=== PATIENT | male | born 1950 | race Caucasian/White ===

== ENCOUNTER 2020-03-27 11:45 | Emergency (ER) | payer MEDICARE, OTHER, SELFPAY ==
--- NOTE | 2020-03-27 11:54 | ED_ITS ---
HPI - Skin/Abscess/Foreign Bdy General: Chief complaint: Wound/Laceration Stated complaint: spider bite Time Seen by Provider: 03/27/20 11:54 Source: patient Mode of arrival: ambulatory Limitations: no limitations History of Present Illness: HPI narrative: Patient is a 69-year-old male who presents to ED today with complaints of a skin lesion to the back of his right thigh that he noticed yesterday after sleeping in a hotel room. Patient believes he may have been bitten by a spider. He states he did not feel initial bite but began feeling a burning sensation while in the shower. Associated symptoms: Deny chills, fever(s), nausea or vomiting Review of Systems Const: Denies: fever(s), chills, body aches, change in appetite, change in weight, fatigue, malaise or night sweats Card: Denies: chest pain Resp: Denies: dyspnea GI: Denies: abdominal pain, nausea or vomiting Musc: Denies: neck pain, back pain, extremity pain, extremity swelling, joint pain, joint swelling, joint stiffness or muscle weakness Skin/Breast: Reports: new lesions Neuro: Denies: headache(s), numbness in extremities, weakness in extremities or sensory changes PFSH ED PFSH: Social History Smoking and tobacco status: never smoked Physical Exam Const: COMMON NORMALS: no acute distress, patient oriented x3, no limitations and alert Extremity: OTHER: Patient has an erythematous area of approximately 1 inch to the posterior mid right thigh; there is a small hemorrhagic center that measures just a few mm and surrounding vesiculation; no fluctuance or drainage noted Neuro: COMMON NORMALS: patient oriented x3 SENSORIUM/ORIENTATION: Yes alert Skin: OTHER: see extremity assessment Course Vital Signs: Vital signs: Vital Signs Pulse Rate 97 03/27/20 12:44 Respiratory Rate 18 03/27/20 12:44 Blood Pressure 141/82 03/27/20 12:44 Pulse Oximetry 95 03/27/20 12:44 Discharge Plan Discharge Patient Disposition: Home, Self-Care Clinical Impression: Brown recluse spider bite Qualifiers: Encounter type: initial encounter Injury intent: accidental or unintentional Qualified Code(s): T63.331A - Toxic effect of venom of brown recluse spider, accidental (unintentional), initial encounter Condition: Stable Prescriptions: New Bactrim DS 800-160 mg tablet 1 tab PO BID 7 Days Qty: 14 RF: 0 Discharge Orders: Discharge Order (Routine); Ordered 03/27/20 Ordered By: Irais Severino Discharge Diet: Usual diet Discharge Activity: Increase activity as tolerated Patient Instructions: Brown Recluse Spider Bite, Brown Recluse Spider Bite (ED) Activity Restrictions/Additional Instructions: Keep wound clean with mild soap and water. You may apply ice to area but make sure not to apply directly to skin or for long periods of time (ice for 15-20 mins). Please follow up with primary care in 3-5 days if area continues to worsen. You may seek medical attention sooner if needed. Discharge Date/Time: 03/27/20 12:44 Coding Level of Care Code ED [employer] [facility]
[2020-03-27 11:56] VITALS: BP 149/106; PULSE 91; RESP 18; O2SAT 95; BMI 37.6
[2020-03-27 12:15] VITALS: BP 141/83; PULSE 94; RESP 14; O2SAT 95
[2020-03-27 12:44] VITALS: BP 141/82; PULSE 97; RESP 18; O2SAT 95
== END 2020-03-27 12:44 | disposition home or self-care (01) ==
LOC: ER 12:44
PROVIDERS: Emergency Provider Physician Assistant
DX: T63.331A Toxic effect of venom of brown recluse spider, accidental (unintentional), initial encounter (principal)
CPT/HCPCS: 12345; 99281